=== PATIENT | female | born 1995 | race Caucasian/White ===

== ENCOUNTER 2020-01-06 18:10 | Emergency (ER) | payer OTHER, SELFPAY ==
[2020-01-06 18:10] VITALS: BP 140/90; PULSE 92; RESP 16; TEMP 36.6; O2SAT 100; BMI 29.5
--- NOTE | 2020-01-06 18:58 | DI.RAD.S_ITS ---
PROCEDURE: XR LUMBAR SPINE 2-3V INDICATIONS: Lower lumbar back pain TECHNIQUE: 2 views of the lumbar spine were acquired. COMPARISON: None. FINDINGS: Bones: 5 [id number]-[id number] vertebrae are present. There is normal bony alignment. No vertebral body compression fractures. No suspicious bony lesions. Soft tissues: Overlying bowel gas pattern is normal. No suspicious soft tissue calcifications. IMPRESSION: No fracture. No acute osseous lesion. If symptoms and/or clinical suspicion for pathology persists, evaluation with MRI may be helpful for further assessment. Dictated by: May Varela MD, PhD on 01/06/2020 at 19:29 Approved by: May Varela MD, PhD on 01/06/2020 at 19:30
--- NOTE | 2020-01-06 19:07 | ED_ITS ---
HPI - Back Pain/Injury <Hortensia Chamberlain, VOICE AND DATA TECHNICIAN - Last Filed: 01/06/20 21:06> General Chief Complaint: Back Pain/Injury Stated Complaint: Back pain Time Seen by Provider: 01/06/20 18:13 Source: patient Limitations: no limitations History of Present Illness HPI Narrative: 24yo female presents emergency department for lower lumbar back pain for the past few weeks. She states she has seen her primary care provider and was given a muscle relaxer and encouraged to take ibuprofen which has helped some. However, she states she has noticed some tingling in the area today that radiated up to the rib left side of her neck. Patient states she has a history of neck pain and often gets neck pain with migraines. She denies any neck pain or migraines at this time. Patient states the tingling moves throughout her body depending on the time. She denies any leg weakness, saddle paresthesias, loss of bowel or bladder control, dizziness, syncope, fevers, chills, vision changes, chest pain, shortness of breath, or any other concerns. Related Data Home Medications Medication Instructions Recorded Confirmed crymlhn-rphnsjgvnbiet-akvibnii 250 1 tab PO Q4-6H PRN 05/04/19 05/04/19 mg-250 mg-65 mg tablet cyclobenzaprine 10 mg tablet 10 mg PO .unk PRN tab 05/04/19 05/04/19 ondansetron HCl 8 mg tablet 8 mg PO Q12H PRN 05/04/19 05/04/19 Previous Rx's Medication Instructions Recorded erenumab-aooe 70 mg/mL 70 mg SUBCUT QMONTH #1 each 05/04/19 subcutaneous auto-injector sumatriptan succinate 100 mg tablet See Rx Instructions PO .COMPLEX 05/04/19 #14 tab fremanezumab-vfrm 225 mg/1.5 mL 225 mg SUBCUT QMONTH #1.5 ml 07/22/19 subcutaneous syringe naratriptan 2.5 mg tablet See Rx Instructions PO .COMPLEX 07/22/19 #10 tab eletriptan 40 mg tablet 40 mg PO ONCE #10 tab 07/27/19 Allergies Allergy/AdvReac Type Severity Reaction Status Date / Time anti-depressants AdvReac enhanced Uncoded 07/22/19 13:28 suicidal ideation/depression hormonal control AdvReac mood Uncoded 07/22/19 13:28 altering Review of Systems <NJ Carrillo - Last Filed: 01/06/20 21:06> Review of Systems Narrative: REVIEW OF SYSTEMS: GENERAL: Denies fever or chills. HENT: No head trauma. EYES: No double vision or vision loss. CARDIOVASCULAR: No chest pain. RESPIRATORY: No shortness of breath. GASTROINTESTINAL: No nausea, vomiting, diarrhea, or constipation. GENITOURINARY: No flank pain. MUSCULOSKELETAL: Complains of lumbar pain, see HPI. INTEGUMENTARY: No rash, lesions, or pruritus. NEURO: Reports tingling sensation to right side and left side of neck, see HPI. PSYCH: No behavior or mood changes. Patient History <NJ Carrillo - Last Filed: 01/06/20 21:06> Surgical History No pertinent past surgical history (Acute) Family History Mother Hypertension Father GERD (gastroesophageal reflux disease) Social History Smoking Status: Never smoker Smoking Status: Never smoker Substance Use Type: does not use Exam <NJ Carrillo - Last Filed: 01/06/20 21:06> Initial Vital Signs Initial Vital Signs: Vital Signs Temperature 97.9 F 01/06/20 18:10 Pulse Rate 92 H 01/06/20 18:10 Respiratory Rate 16 01/06/20 18:10 Blood Pressure 140/90 01/06/20 18:10 Pulse Oximetry 100 01/06/20 18:10 PHYSICAL EXAMINATION: GENERAL: Well groomed, alert, and cooperative. Answers questions promptly and appropriately. Vital signs noted. HENT: Normocephalic, atraumatic. EYES: Symmetrical, sclera white, no periorbital swelling. NECK: No cervical tenderness, full range of motion. CARDIOVASCULAR: S1 and S2 sounds normal. Regular rate and rhythm, no murmurs, clicks, or bruits. No pedal edema. RESPIRATORY: Normal respiratory rate, trachea midline, airway patent. No stridor, nasal flaring or accessory muscle use. Lungs are clear in all [place]. MUSCULOSKELETAL: Tenderness to lower lumbar spine with palpation, no tenderness to flanks or lumbar muscles. Normal gait and coordination. Equal tone and mass bilaterally. No spinal deformities. Equal upper and lower extremity strength bilaterally. EXTREMITIES: CMS intact. No pedal edema. SKIN: Warm, dry, soft, appropriate color for ethnicity. No lesions, rashes, or wounds present to back.. NEURO: Alert and Oriented X 3. No sensory deficits. Intact light touch sensation to upper and lower extremities. PSYCH: Appropriate affect and mood. <Lore Jonas MD - Last Filed: 01/07/20 02:02> Initial Vital Signs Initial Vital Signs: Vital Signs Temperature 97.9 F 01/06/20 18:10 Pulse Rate 92 H 01/06/20 18:10 Respiratory Rate 16 01/06/20 18:10 Blood Pressure 140/90 01/06/20 18:10 Pulse Oximetry 100 01/06/20 18:10 Course <NJ Carrillo - Last Filed: 01/06/20 21:06> Course Course Narrative: Patient reported improved symptoms after administration of Toradol. Orders Ordered: ED Orders 01/06/20 18:58 XR lumbar spine 2-3V Stat Discontinued Medications Ketorolac Tromethamine (Toradol) 30 mg IM NOW ONE Stop: 01/06/20 18:59 Last Admin: 01/06/20 19:25 Dose: 30 mg Documented by: LESLIE Vital Signs Vital signs: Vital Signs - 8 hr 01/06/20 18:10 01/06/20 20:28 Temperature 97.9 F Pulse Rate 92 H 88 Respiratory Rate 16 13 Blood Pressure 140/90 131/66 Pulse Oximetry 100 97 <Lore Jonas MD - Last Filed: 01/07/20 02:02> Orders Ordered: ED Orders 01/06/20 18:58 XR lumbar spine 2-3V Stat Discontinued Medications Ketorolac Tromethamine (Toradol) 30 mg IM NOW ONE Stop: 01/06/20 18:59 Last Admin: 01/06/20 19:25 Dose: 30 mg Documented by: LESLIE Vital Signs Vital signs: Vital Signs - 8 hr 01/06/20 18:10 01/06/20 20:28 Temperature 97.9 F Pulse Rate 92 H 88 Respiratory Rate 16 13 Blood Pressure 140/90 131/66 Pulse Oximetry 100 97 MDM - Back Pain/Injury <NJ Carrillo - Last Filed: 01/06/20 21:06> Medical Records Attestation: I reviewed the patient's medical records. Lab Data Attestation: I reviewed the patient's lab results. Labs: Point of Care Testing Test Results Negative Urine Dip Bedside Urine Glucose Negative Bedside Urine Bilirubin - Negative Bedside Urine Ketone - Negative Urine Specific Mereta 1.010 Bedside Urine Occult Blood - Negative Bedside Urine pH 6.5 Bedside Urine Protein - Negative Bedside Urine Urobilinogen - Negative Bedside Urine Nitrite - Negative Bedside Urine Leukocytes - Negative Esterase Imaging Data Lumbar Xray: Radiologist's Impression: [address] [address] XRay Report Signed Patient: Aisha Christine#: [id number] : 1995Acct:[id number] Age/Sex: 24 / FDate of Service: 01/06/20 Loc: ED Accession Number: [id number] Procedure: XR lumbar spine 2-3V Ordering Provider: Hortensia Chamberlain PROCEDURE: XR LUMBAR SPINE 2-3V INDICATIONS: Lower lumbar back pain TECHNIQUE: 2 views of the lumbar spine were acquired. COMPARISON: None. FINDINGS: Bones: 5 yyg-hdd-txxhjwi vertebrae are present. There is normal bony alignment. No vertebral body compression fractures. No suspicious bony lesions. Soft tissues: Overlying bowel gas pattern is normal. No suspicious soft tissue calcifications. IMPRESSION: No fracture. No acute osseous lesion. If symptoms and/or clinical suspicion for pathology persists, evaluation with MRI may be helpful for further assessment. Dictated by: May Varela MD, PhD on 01/06/2020 at 19:29 Approved by: May Varela MD, PhD on 01/06/2020 at 19:30 [facility] Narrative Medical decision making narrative: History and examination concerning for lumbar strain. Less concern for cauda equina given lack of saddle paresthesias, no limb weakness, no loss of bowel or bladder control. Less concern for spinal nerve release or fractures given history and negative x- ray. Less concern for infectious etiology given lack of recent concerning procedures, patient is afebrile non tachycardic. Unsure exact cause of diffuse tingling sensations, may be related to medication interaction or muscle tension due to current back injury. Patient's symptoms improved after administration of Toradol. She was encouraged to apply ice, heat, perform gentle stretches, participate in low-impact exercise, and follow up with PCP for further discussion and monitoring if necessary. She was given strict return precautions for concerning symptoms. Patient agreed to plan of care verbalized understanding <Lore Jonas MD - Last Filed: 01/07/20 02:02> Lab Data Labs: Point of Care Testing Test Results Negative Urine Dip Bedside Urine Glucose Negative Bedside Urine Bilirubin - Negative Bedside Urine Ketone - Negative Urine Specific Mereta 1.010 Bedside Urine Occult Blood - Negative Bedside Urine pH 6.5 Bedside Urine Protein - Negative Bedside Urine Urobilinogen - Negative Bedside Urine Nitrite - Negative Bedside Urine Leukocytes - Negative Esterase Discharge Plan Departure Patient Disposition: Home Clinical Impression: Low back pain Qualifiers: Chronicity: acute Back pain laterality: left Sciatica presence: without sciatica Qualified Code(s): M54.5 - Low back pain Discharge Date/Time: 01/06/20 20:30 Instructions: DI for Low Back Pain Activity Restrictions/Additional Instructions: Thank you for entrusting me with your care today. As discussed, your x-ray in urine test are non-remarkable. As discussed the tingling sensations a feel may be related to muscle relaxers. Most back pain resolves in approximately 6 weeks. I suggest applying heat, using ice, and performing gentle stretches to low back, upper back, and legs. Additionally, back pain is improved with a moderate amount of low-impact exercise such as swimming or walking. Take ibuprofen as needed for pain. Please follow-up with your primary care provider in 1-2 weeks for further evaluation and discussion of further treatment. Return emergency department for any new or worsening symptoms such as numbness or tingling in your pelvic area, loss of bowel or bladder control, severe pain, or any other concerns. Prescriptions: No Action eletriptan 40 mg tablet 40 mg PO ONCE Qty: 10 RF: 2 ondansetron HCl 8 mg tablet 8 mg PO Q12H PRNRF: 0 cyclobenzaprine 10 mg tablet 10 mg PO .unk PRNRF: 0 Excedrin Migraine 250-250-65 mg tablet 1 tab PO Q4-6H PRNRF: 0 Aimovig Autoinjector 70 mg/mL auto-injector 70 mg SUBCUT QMONTH Qty: 1 RF: 12 sumatriptan succinate 100 mg tablet See Rx Instructions PO .COMPLEX Qty: 14 RF: 2 Ajovy Syringe 225 mg/1.5 mL syringe 225 mg SUBCUT QMONTH Qty: 1.5 RF: 12 naratriptan 2.5 mg tablet See Rx Instructions PO .COMPLEX Qty: 10 RF: 2 Referrals: Katty Perez MD [Primary Care Provider] - <Lore Jonas MD - Last Filed: 01/07/20 02:02> Cosign ED Attending Cosignature Attestation: I was immediately available in the department for consultation throughout this patient's visit. I agree with documentation as above. Lore Jonas MD
[2020-01-06] MEDS: KETOROLAC 60 MG/2 ML VIAL 30 MG IM (19:25)
[2020-01-06 20:28] VITALS: BP 131/66; PULSE 88; RESP 13; O2SAT 97
== END 2020-01-06 20:30 | disposition home or self-care (01) ==
PROVIDERS: Emergency Provider Nurse Practitioner; PCP Hospitalist
DX: M54.5 Low back pain (principal); R20.2 Paresthesia of skin
CPT/HCPCS: 72100; 81003; 81025; 96372; 99283; J1885

== ENCOUNTER → 2021-01-01 09:07 | Outpatient (CLI) | payer OTHER, SELFPAY ==
[2021-01-01 11:47] LABS: COVID19 -Nasal RAPID Negative (Negative)
== END ==
PROVIDERS: PCP Family Medicine; Visit Provider Physician Assistant
DX: Z01.812 Encounter for preprocedural laboratory examination (principal); Z20.822 Contact with and (suspected) exposure to COVID-19
CPT/HCPCS: 87635

== ENCOUNTER 2021-01-02 13:23 | Day surgery (SDC) | payer OTHER, SELFPAY ==
--- NOTE | 2021-01-02 | PATH_ITS ---
[facility] Accession Number: [id number] . 01 Material submitted: . PART A: colon - RIGHT COLON PART B: colon - LEFT COLON . 02 Diagnosis: A. Right Colon, Biopsy: Colonic mucosa with no diagnostic abnormality. Negative for active, chronic, and microscopic colitis. Negative for dysplasia and malignancy. . B. Left Colon, Biopsy: Colonic mucosa with no diagnostic abnormality. Negative for active, chronic, and microscopic colitis. Negative for dysplasia and malignancy. . MRV 01/04/2021 0932 Local . 02 Electronically signed: . Karina South MD, Pathologist NPI- [id number] . 01 Gross description: . Part A: RIGHT COLON: Received in formalin are 3 fragment(s) of healy, soft tissue measuring 0.5 x 0.2 x 0.1 cm to 0.1 x 0.1 x 0.1 cm submitted entirely in 1 cassette(s) Part B: LEFT COLON: Received in formalin are 2 fragment(s) of healy, soft tissue measuring 0.3 x 0.2 x 0.1 cm to 0.2 x 0.1 x 0.1 cm submitted entirely in 1 cassette(s) /MONIQUE 01/03/2021 0405 Local . 02 Pathologist provided ICD-10: R93.5 . 02 CPT . 614522, 568324 Performed at: 01 [facility] [address], [place], [place] [id number] MD Max Villeda MD Phone: [phone] Performed at: 02 [facility] [address] [place], [place] [id number] MD Karina South MD Phone: [phone]
[2021-01-02 13:54] VITALS: BP 156/98; PULSE 106; RESP 18; TEMP 36.5; O2SAT 98; BMI 31.0
[2021-01-02] MEDS: SODIUM CHLORIDE 0.9% 1,000 ML 125 ML IV (14:10)
--- NOTE | 2021-01-02 15:11 | SUR.PREOP ---
Pt got nauseated, cool wash rag and queaze ease to bedside, nausea resolved.
--- NOTE | 2021-01-02 15:25 | P.HP_ITS ---
History of Present Illness History of Present Illness Date Patient Seen: 01/02/21 Time Patient Seen: 15:25 Chief complaint: DX COLONOSCOPY Narrative: I reviewed Dr Aragon's note. diarrhea, ab pain, abnl imaging. Patient History Surgical History No pertinent past surgical history Family & Social History Family History Mother Hypertension Father GERD (gastroesophageal reflux disease) Social History: household members significant other Tobacco & Substance use: Smoking Status Never smoker alcohol intake current alcohol intake frequency holiday/special occasion Substance Use Type marijuana Meds Home Medications and Allergies Home Medications Medication Instructions Recorded Confirmed Type ondansetron HCl 8 mg tablet 8 mg PO Q12H PRN 05/04/19 01/02/21 History fremanezumab-vfrm 225 mg/1.5 mL 225 mg SUBCUT QMONTH #1.5 ml 07/22/19 12/05/20 Rx subcutaneous syringe (Ajovy Syringe) eletriptan 40 mg tablet 40 mg PO ONCE #10 tab 07/27/19 01/02/21 Rx omeprazole 20 mg capsule,delayed 20 mg PO BID 10/17/20 01/02/21 History release tizanidine 4 mg capsule 4 mg PO TID PRN 10/17/20 12/05/20 History hydroxyzine HCl 10 mg tablet 10 mg PO TID PRN #90 tab 12/05/20 01/02/21 Rx lamotrigine 100 mg tablet 150 mg PO DAILY 90 Days #135 tab 12/05/20 12/05/20 Rx Allergies Allergy/AdvReac Type Severity Reaction Status Date / Time anti-depressants AdvReac Intermediate enhanced Uncoded 01/02/21 13:48 suicidal ideation/depression hormonal control AdvReac mood Uncoded 01/02/21 13:48 altering Review of Systems Review of Systems ROS: Yes All systems reviewed with the patient and are negative except as oth erwise documented Exam Vital Signs (past 8 hours): - 01/02/21 13:54 Temperature 97.7 F Pulse Rate 106 H Respiratory Rate 18 Blood Pressure 156/98 H Pulse Oximetry 98 Oxygen Delivery Method Room Air Const General: cooperative and comfortable Orientation: alert HENMT Head: normocephalic Ears: external ears normal Nose: external nose normal Face and sinus: normal facial exam Mouth: oral mucosae normal Eyes General: appearance normal, both eyes and all related structures Neck Neck: normal visual inspection Chest Chest: normal inspection of the chest Resp Effort & Inspection: normal respiratory effort Auscultation: clear to auscultation bilaterally Cardio Rate: regular rate Rhythm: regular rhythm Heart Sounds: no murmurs GI Inspection: normal to inspection Palpation: soft and No tender Auscultation: normal bowel sounds Skin General: no rashes or lesions noted and No jaundice Neuro General: patient alert and moves all extremities Cognition: normal cognition Speech: speech normal Extrem General: no pedal edema Psych Appearance: grossly normal Assessment & Plan Assessment & Plan narrative: diarrhea, ab pain, bleeding, abnl CT. Colonoscopy today.
--- NOTE | 2021-01-02 15:27 | PM.PREOP ---
Pre-operative Note COVID-19 COVID-19 status: Negative Result date/Date tested (Pos, Neg/Pending): 01/01/21 Interval Note History & Physical reviewed/Exam performed by Physician: Yes Changes to H&P: No ASA Class (for procedural sedation): II
[2021-01-02] MEDS: fentaNYL 250 MCG/5 ML INJ IV (15:30)
[2021-01-02] MEDS: MIDAZOLAM 5 MG/5 ML VIAL IV (15:31)
--- NOTE | 2021-01-02 15:50 | P.OP.ENDO_ITS ---
Operative Date/Time/Diagnoses Date of procedure: 01/02/21 Time of procedure: 15:50 Pre-op diagnosis: Diarrhea abdominal pain abnormal imaging Post-op diagnosis: same Procedure & Clinicians Study performed: Colonoscopy with biopsies Same procedure as scheduled: Yes Indications: Diarrhea abdominal pain abnormal imaging remote history of rectal b leeding Surgeon: Bon Koch Procedure Notes SCOAP/Timeout: Done Procedure in detail: After the risks and benefits were explained, written and verbal informed consent was obtained. The patient was brought into the procedure room and placed into the left lateral decubitus position. Conscious sedation medication was applied as per nursing documentation. Digital rectal examination was accomplished. The scope was introduced into the patient and advanced under direct visualization to the cecum as identified by the appendiceal orifice and ileocecal valve. The scope was slowly withdrawn to carefully examine the mucosa for any defects or lesions. Comprehensive imaging was accomplished throughout the rectum including the dentate line. The colon was decompressed, the scope was then removed from the patient who tolerated the procedure well. 7 mg Versed, 150 mcg fentanyl Bowel prep adequate Scope withdrawal time: 8 minutes Sedation minutes: 19 Complications: none Impression: There was no evidence of proctitis. Patient had a fairly normal vascular pattern to the wall no friability or significant erythema. The colon mucosa was normal throughout as well. Random colon biopsies were taken from the right colon and left colon and then submitted separately. The terminal ileum was interrogated for perhaps 10 cm and appeared entirely normal. Multiple photographs were taken of very well preserved villi. No scattered erythema or erosions. Endoscopic diagnosis 1. Visually normal colonoscopy 2. Visually normal terminal ileoscopy Post-procedure Plan for aftercare: 1. Await histopathology 2. Follow up GI clinic. Follow up: weeks Disposition: PACU
[2021-01-02 15:53] VITALS: BP 113/92; PULSE 107; RESP 16; TEMP 36.6; O2SAT 98
[2021-01-02 15:58] VITALS: BP 131/84; PULSE 87; RESP 16; O2SAT 100
[2021-01-02 16:17] VITALS: BP 122/84; PULSE 103; RESP 16; TEMP 36.7; O2SAT 96
--- NOTE | 2021-01-02 16:20 | SUR.PHASEII ---
Belly soft, tolerating flds, no more nausea.
--- NOTE | 2021-01-02 16:27 | SUR.PHASEII ---
Dressed when ready, left in stable condition.
== END 2021-01-02 16:27 | disposition home or self-care (01) ==
PROVIDERS: PCP Family Medicine; Referring Provider Internal Medicine Gastroenterology; Visit Provider Internal Medicine Gastroenterology
PROC: 0DJD8ZZ Inspection of Lower Intestinal Tract, Via Natural or Artificial Opening Endoscopic (ICD-10-PCS; CPT 45378; principal; 2021-01-02 14:30)
DX: R10.31 Right lower quadrant pain (principal); R93.5 Abnormal findings on diagnostic imaging of other abdominal regions, including retroperitoneum; R19.7 Diarrhea, unspecified; K21.9 Gastro-esophageal reflux disease without esophagitis; F32.9 Major depressive disorder, single episode, unspecified
CPT/HCPCS: 45378; J2250; J3010

== ENCOUNTER → 2021-09-03 09:16 | Outpatient (CLI) | payer OTHER, SELFPAY ==
[2021-09-03 10:32] LABS: COVID19 -Nasal RAPID Negative (Negative)
== END ==
PROVIDERS: PCP Family Medicine; Visit Provider Family Medicine Sleep Medicine
DX: Z20.822 Contact with and (suspected) exposure to COVID-19 (principal)
CPT/HCPCS: 87635; C9803

== ENCOUNTER 2021-09-05 11:23 | Day surgery (SDC) | payer OTHER, SELFPAY ==
--- NOTE | 2021-09-05 | PATH_ITS ---
[facility] Accession Number: [id number] . 01 Material submitted: . PART A: gastrointestinal site - GASTRIC PART B: esophagus - ESOPHAGUS PART C: esophagus - ESOPHAGUS . 01 Clinical history: . B: RULE OUT VARICE C: RULE OUT EOE . 02 Diagnosis: A. Stomach, Biopsies: Body-type mucosa with mild chronic gastritis. Negative for Helicobacter by immunohistochemistry. Negative for intestinal metaplasia. Negative for dysplasia and malignancy. . B. Esophagus, Biopsies: Squamocolumnar junctional mucosa with no diagnostic abnormality. Negative for intestinal metaplasia. Negative for dysplasia and malignancy. . C. Esophagus, Biopsies: Squamous mucosa with no diagnostic abnormality. Intraepithelial eosinophils are not increased. Negative for dysplasia and malignancy. MRV 09/11/2021 1447 Local . 02 Electronically signed: . Karina South MD, Pathologist NPI- [id number] . 01 Gross description: . Part A: GASTRIC: Received in formalin are 2 fragment(s) of healy, soft tissue measuring 0.5 x 0.2 x 0.1 cm to 0.1 x 0.1 x 0.1 cm submitted entirely in 1 cassette(s) Part B: ESOPHAGUS: Received in formalin are 2 fragment(s) of healy, soft tissue measuring 0.4 x 0.2 x 0.2 cm to 0.1 x 0.1 x 0.1 cm submitted entirely in 1 cassette(s) Part C: ESOPHAGUS: Received in formalin are 3 fragment(s) of healy, soft tissue measuring 0.3 x 0.3 x 0.3 cm to 0.2 x 0.2 x 0.2 cm submitted entirely in 1 cassette(s) /CPE 09/06/2021 0726 Local . 02 Microscopic: . A. An immunohistochemical stain is performed to evaluate for Helicobacter organisms and is negative. The control stain shows appropriate reactivity. . B. An AB/PAS stain is performed to evaluate for intestinal metaplasia, and is negative. The control stain shows appropriate reactivity. . * This test was developed and its performance characteristics determined by [facility]. It has not been cleared or approved by the U.S. Food and Drug Administration. The FDA has determined that such clearance or approval is not necessary. This test is used for clinical purposes. It should not be regarded as investigational or for research. . 02 Pathologist provided ICD-10: R13.10, R11.10 . 02 CPT . 667924, 967820, 338807, 768286, K51551 Specimen Comment: A courtesy copy of this report has been sent to [facility] Performed at: 01 [facility] Cyt[facility] [address] [id number] MD Max Villeda MD Phone: [phone] Performed at: 02 [facility] [address] [place] [id number] MD Karina South MD Phone: [phone]
[2021-09-05 11:40] VITALS: BP 131/91; PULSE 90; RESP 16; TEMP 36.1; O2SAT 100; BMI 32.5
[2021-09-05] MEDS: SODIUM CHLORIDE 0.9% 1,000 ML 84 ML IV (11:53)
--- NOTE | 2021-09-05 12:15 | PM.PREOP ---
Pre-operative Note COVID-19 COVID-19 status: Negative Interval Note History & Physical reviewed/Exam performed by Physician: Yes Changes to H&P: No ASA Class (for procedural sedation): II
--- NOTE | 2021-09-05 12:16 | PM.OP.EGD ---
Operative Date/Time/Diagnoses Date of procedure: 09/05/21 Pre-op diagnosis: See indication and findings Procedure & Clinicians Study performed: EGD Indications: GERD poorly responsive to medication Procedure Notes Procedure in detail: After informed consent was obtained the patient was placed in left lateral decubitus position. The video upper scope was placed into the oropharynx and with the patient's help swallowed into the esophagus. The esophagus stomach and duodenum were carefully examined. On withdrawal retroflexed view the GE junction was performed. The scope was removed. The patient tolerated procedure well. Blood loss none Complications none Sedation mac Findings 1. Somewhat irregular Z-line with at least 2 small areas/tongues measuring 5-6 mm above the bulk of the Z-line. Biopsies taken to rule out Dickson's 2. Normal esophagus biopsies taken to rule out eosinophilic esophagitis 3. Striped gastric erythema in the antrum, mild. Biopsies taken to rule out Helicobacter 4. Normal duodenal bulb and sweep Patient will be in touch regarding biopsies. In the meantime she will buy famotidine 20 mg take 2 p.o. q.h.s. along with her omeprazole which she has taken before dinner. If this still is unclear her in the morning she should add famotidine 40 mg q.a.m. as well.
[2021-09-05 12:56] VITALS: BP 134/86; PULSE 91; RESP 16; TEMP 37.3; O2SAT 99
[2021-09-05 13:01] VITALS: BP 142/86; PULSE 82; RESP 16; O2SAT 97
[2021-09-05 13:07] VITALS: BP 135/96; PULSE 79; RESP 18; O2SAT 98
[2021-09-05 13:17] VITALS: BP 142/76; PULSE 92; RESP 16; TEMP 37.2; O2SAT 99
[2021-09-05 13:21] VITALS: BP 136/80; PULSE 90; RESP 16; TEMP 36.2; O2SAT 98
== END 2021-09-05 13:24 | disposition home or self-care (01) ==
PROVIDERS: PCP Family Medicine; Referring Provider Internal Medicine Gastroenterology; Visit Provider Internal Medicine Gastroenterology
PROC: 0DJ08ZZ Inspection of Upper Intestinal Tract, Via Natural or Artificial Opening Endoscopic (ICD-10-PCS; CPT 43235; principal; 2021-09-05 12:30)
DX: K29.50 Unspecified chronic gastritis without bleeding (principal); K21.9 Gastro-esophageal reflux disease without esophagitis
CPT/HCPCS: 43239; 81025; J2704

== ENCOUNTER → 2023-02-24 14:38 | Outpatient (CLI) | payer OTHER, SELFPAY ==
[2023-02-24 14:53] LABS: Specimen Label NATERA
[2023-02-24 15:33] LABS: Add Manual Diff / Slide Review NO; Basophils Absolute Auto 0 /uL (0-100); Basophils Percent Auto 0.5 % (0-2); Eosinophils Absolute Auto 100 /uL (0-450); Hematocrit 39.9 % (36-46); Hemoglobin 13.9 g/dL (12.0-16.0); Lymphocytes Absolute Auto 2100 /uL (1100-4500); Lymphocytes Percent Auto 25.1 % (25-40); Mean Corpuscular HGB Conc 34.8 % (30-36); Mean Corpuscular Hemoglobin 29.7 PG (26-34); Mean Corpuscular Volume 85.5 fL (80-100); Monocytes Absolute Auto 600 /uL (0-900); Monocytes Percent Auto 6.9 % (3-14); Neutrophils Absolute Auto 5400 /uL (1500-7000); Neutrophils Percent Auto 66.5 % (50-75); Platelet Count 266 X10^3/uL (150-400); Red Blood Cell Count 4.66 X10^6/uL (4.0-5.2); Red Cell Distribution Width 13.6 % (11.6-14.8); White Blood Cell Count 8.2 X10^3/uL (4.5-11.0)
[2023-02-24 17:09] LABS: Hepatitis B Surface Antigen NEGATIVE s/c (NEGATIVE); Rubella Antibody IgG 67.2 IU/mL (>15)
[2023-02-24 17:25] LABS: HIV 1 & 2 Ab/Ag 4th Gen Combo NEGATIVE (NEGATIVE); Hep C Virus Ab w/Reflex Quant NEGATIVE s/c (NEGATIVE)
[2023-02-25 06:08] LABS: RPR Screen Non Reactive (Non Reactive)
[2023-02-25 12:55] LABS: Varicella IgG Antibody 145 index (Immune >165)
== END ==
PROVIDERS: PCP Physician Assistant Medical; Referring Provider Obstetrics & Gynecology; Visit Provider Obstetrics & Gynecology
DX: Z34.01 Encounter for supervision of normal first pregnancy, first trimester (principal)
CPT/HCPCS: 36415; 80055; 86787; 86803; 86850; 86900; 86901; 87389

== ENCOUNTER → 2023-03-25 16:43 | Outpatient (CLI) | payer OTHER, SELFPAY ==
[2023-03-25 20:01] LABS: Urine N gonorrhoeae NOT DETECTED
[2023-03-25 20:11] LABS: Urine Chlamydia NOT DETECTED
== END ==
PROVIDERS: PCP Physician Assistant Medical; Referring Provider Student in an Organized Health Care Education/Training Program; Visit Provider Student in an Organized Health Care Education/Training Program
DX: Z34.01 Encounter for supervision of normal first pregnancy, first trimester (principal); Z3A.14 14 weeks gestation of pregnancy
CPT/HCPCS: 87086; 87491; 87591

== ENCOUNTER → 2023-04-23 15:43 | Outpatient (CLI) | payer OTHER, SELFPAY ==
[2023-04-28 15:03] LABS: Gest Age on Col Date 18.6 weeks (.); Insulin Dep Diabetes No (.); OSBR Risk 1IN 7137 (.); Results Report (.); Test Results *Screen Negative* (.)
== END ==
PROVIDERS: PCP Physician Assistant Medical; Referring Provider Student in an Organized Health Care Education/Training Program; Visit Provider Student in an Organized Health Care Education/Training Program
DX: Z34.02 Encounter for supervision of normal first pregnancy, second trimester (principal); Z3A.18 18 weeks gestation of pregnancy
CPT/HCPCS: 36415; 82105

== ENCOUNTER → 2023-05-05 12:05 | Outpatient (CLI) | payer OTHER, SELFPAY ==
--- NOTE | 2023-05-05 12:06 | DI.US.S_ITS ---
PROCEDURE: US OB >= 14 WEEKS FETUS INDICATIONS: Anatomy Scan OUTSIDE/PRIOR DATING DATA: Last menstrual period (LMP): 12/14/2022. LMP-based estimated date of delivery (VENKATESH): 09/20/2023. The calculations are made using the clinical VENKATESH of 09/20/2023. TECHNIQUE: Real-time scanning was performed of the fetus, with image documentation and biometric measurements. Technically difficult exam due to the body habitus and acoustic windows. COMPARISON: [facility], , US OB >= 14 WEEKS FETUS, 02/24/2023, 14:18. FINDINGS: General: A single living intrauterine gestation is present. Presentation: Vertex. Placenta: Placental position is fundal, without previa. Amniotic fluid index: 11.3 cm, normal range is 5-24 cm. Single deepest vertical pocket is 4 cm. heart rate: 141 beats per minute. Maternal cervical canal: 3.5 cm long. Normal lower limit is 2.5 cm. biometrics: Biparietal diameter: 4.8 cm, 20 weeks 4 days Head circumference: 18.2 cm, 20 weeks 4 days Abdominal circumference: 14.2 cm, 19 weeks 4 days Femur length: 3.5 cm, 20 weeks 6 days Clinically estimated gestational age: 20 weeks 2 days Composite gestational age from present scan: 20 weeks 3 days Estimated weight and percentile: 339 g, 41st percentile Anatomic survey: Neuro: Ventricles are non-dilated at less than 10 mm. Cisterna magna is normal at 3-11 mm. Cerebellum is normal in size and morphology. Nuchal skin fold: Normal at less than 6 mm between 14-21 weeks gestational age. Face: Nose and lips, facial profile are normal. Spine: No evidence for spina bifida. Heart: 4-chambered heart is present, with normal ventricular outflow tracts. Diaphragm: Diaphragm is intact. Stomach: Left-sided stomach is present. Kidneys: No hydronephrosis. Normal is less than 5 mm in 2nd trimester, less than 7 mm in 3rd trimester. Cord: 3-vessel cord has orthotopic insertion. Bladder: Normal in size. Extremities: All 4 extremities identified. IMPRESSION: Technically difficult exam due to acoustic windows and body habitus. 1. [place] living intrauterine at 20 weeks 3 days based on today's ultrasound. Fetus is in the 41st percentile for weight. 2. Normal placenta and amniotic fluid. 3. Normal and complete anatomic survey. We strive to produce accurate, complete, and clear reports of imaging services. To assist us in improving patient care, this report was composed using standard report templates and voice recognition software. Therefore, it may contain abnormal punctuation, insertions and/or omissions. Occasional wrong-word or sound-alike substitutions may occur. Though we review the report and make efforts to correct it, we do recommend that the report be read carefully in proper context to recognize any text inaccuracies. Dictated by: Delta Peters M.D. on 05/05/2023 at 15:32 Approved by: Delta Peters M.D. on 05/05/2023 at 15:39
== END ==
PROVIDERS: PCP Physician Assistant Medical; Referring Provider Student in an Organized Health Care Education/Training Program; Visit Provider Student in an Organized Health Care Education/Training Program
DX: Z34.02 Encounter for supervision of normal first pregnancy, second trimester (principal); Z3A.20 20 weeks gestation of pregnancy
CPT/HCPCS: 76811

== ENCOUNTER → 2023-05-21 17:02 | Outpatient (CLI) | payer OTHER, SELFPAY | PROVIDERS: PCP Physician Assistant Medical; Visit Provider Obstetrics & Gynecology | DX: Z34.90 Encounter for supervision of normal pregnancy, unspecified, unspecified trimester (principal) | CPT/HCPCS: 87086 ==

== ENCOUNTER 2023-05-27 18:09 | Emergency (ER) | payer OTHER, SELFPAY ==
[2023-05-27 18:17] VITALS: BP 137/82; PULSE 104; RESP 20; TEMP 36.6; O2SAT 100; BMI 28.0
[2023-05-27 19:16] LABS: Influenza A - CEPHEID Flu A NEGATIVE (NEGATIVE); Influenza B - CEPHEID Flu B NEGATIVE (NEGATIVE)
[2023-05-27 19:31] LABS: COVID-19 CEPHEID 4-PLEX PCR Negative (Negative)
[2023-05-27 19:32] LABS: Respiratory Syncytial Virus POSITIVE (Negative)
--- NOTE | 2023-05-27 20:22 | ED.GENADULT ---
HPI - General Adult General Chief complaint: Upper Respiratory Symptoms Stated complaint: sent by OB for fever 23 wks Time Seen by Provider: 05/27/23 18:26 Source: patient Mode of arrival: Ambulatory History of Present Illness HPI narrative: Patient is a 27-year-old female. She is 23 weeks . She is here for evaluation of a fever. She was sent in by her OB provider. Does have some sinus congestion. Also has a cough. No sore throat. No abdominal pain, vaginal bleeding, vaginal discharge or urinary symptoms. No rashes. She has had a uncomplicated up to this point. Related Data Home Medications Medication Instructions Recorded Confirmed ondansetron HCl 8 mg tablet 8 mg PO Q12H PRN Nausea 05/04/19 05/21/23 calcium carbonate 300 mg (750 mg) 300 mg PO QID PRN dyspepsia 02/04/23 05/21/23 chewable tablet (Tums) vitamin-ferrous sulfate tab PO 02/04/23 05/21/23 27 mg iron-folic acid 0.8 mg tablet promethazine 25 mg tablet 25 mg PO Q4-6H PRN nausea and 02/04/23 05/21/23 vomiting pyridoxine (vitamin B6) 100 mg 100 mg PO QID PRN nausea 02/04/23 05/21/23 tablet Allergies Allergy/AdvReac Type Severity Reaction Status Date / Time anti-depressants AdvReac Intermediate enhanced Uncoded 05/21/23 15:13 suicidal ideation/depression hormonal control AdvReac mood Uncoded 05/21/23 15:13 altering Review of Systems Constitutional Constitutional: Reports system reviewed and no additional complaints, except as documented ENT Ears, Nose, Mouth, and Throat: Reports system reviewed and no additional complaints, except as documented Respiratory Respiratory: Reports system reviewed and no additional complaints, except as documented Gastrointestinal Gastrointestinal: Reports system reviewed and no additional complaints, except as documented Integumentary/Breasts Skin/Breast: Reports system reviewed and no additional complaints, except as documented Patient History Medical History Persistent mood [affective] disorder, unspecified Surgical History (Updated 02/04/23 @ 10:07 by Michelle Foote RN) History of removal of skin mole [place] teeth extracted Family History (Updated 02/04/23 @ 10:08 by Michelle Foote RN) Mother Hypertension Father GERD (gastroesophageal reflux disease) Grandmother Colon cancer Social History marital status: number of children: 0 household members: spouse lives independently: Yes caregiver/support person: No housing: house pets and animals: No education level: college (bachelor's degree) occupational status: employed (works in [employer]) current occupational exposures/hazards: Yes special [place] needs: No travel history: recent ([place], [place]) seatbelt use: always water heater temp set < 120 deg: Yes working smoke detector in home: Yes fire extinguisher in home: Yes carbon monox detector in home: Yes firearms in home: Yes firearms unloaded and locked: Yes do you feel safe at home: Yes Smoking Status: Former smoker second hand exposure: Yes (sees a lot of patients in their homes who smoke) alcohol intake: former (occasionally when not ) substance use type: marijuana (agrees not to use while /) during the past year weight has: decreased > 10 lbs (15-20 lb, intentional w/ diet/exercise) well-balanced diet: rarely or never daily servings fruits/ve-1 caffeine: Yes (1 cup coffee in AM) Type(s) of exercise: walking Smoking Status: Former smoker alcohol intake frequency: holidays/special occasions only Substance Use Type: does not use Exam Initial Vital Signs Initial Vital Signs: Vital Signs Temperature 97.8 F 05/27/23 18:17 Pulse Rate 104 H 05/27/23 18:17 Respiratory Rate 20 05/27/23 18:17 Blood Pressure 137/82 05/27/23 18:17 Pulse Oximetry 100 05/27/23 18:17 Oxygen Delivery Method Room Air 05/27/23 18:17 HENMT Head: normal to inspection and normocephalic Resp Effort & Inspection: normal respiratory effort Cardio Rate: regular rate GI Other: Gravid abdomen Neuro General: patient alert, patient awake, patient oriented x3 and moves all extremities Extrem General: No edema Course Orders Ordered: ED Orders 05/27/23 18:23 Covid-19 + FLU A/B + RSV - PCR Stat Vital Signs Vital signs: Vital Signs - 8 hr 05/27/23 18:17 05/27/23 20:24 Temperature 97.8 F 97.9 F Pulse Rate 104 H 78 Respiratory Rate 20 20 Blood Pressure 137/82 130/76 Pulse Oximetry 100 97 Oxygen Delivery Method Room Air Room Air Medical Decision Making Lab Data Labs: Lab Results 05/27/23 Range/Units 18:23 SARS-CoV-2 (PCR) Negative (Negative) Influenza A (RT-PCR) Flu a negative (NEGATIVE) Influenza B (RT-PCR) Flu b negative (NEGATIVE) RSV (PCR) Positive A (Negative) Urine Dip Bedside Urine Glucose Negative Bedside Urine Bilirubin - Negative Bedside Urine Ketone - Negative Urine Specific [place] 1.005 Bedside Urine Occult Blood - Negative Bedside Urine pH 6.0 Bedside Urine Protein - Negative Bedside Urine Urobilinogen - Negative Bedside Urine Nitrite - Negative Bedside Urine Leukocytes +/- 15 Esterase Point of care testing: Urine Dip Bedside Urine Glucose Negative Bedside Urine Bilirubin - Negative Bedside Urine Ketone - Negative Urine Specific [place] 1.005 Bedside Urine Occult Blood - Negative Bedside Urine pH 6.0 Bedside Urine Protein - Negative Bedside Urine Urobilinogen - Negative Bedside Urine Nitrite - Negative Bedside Urine Leukocytes +/- 15 Esterase MDM Narrative Medical decision making narrative: Patient is RSV positive. She has no Ob specific related complaints. There was no indication for any OB ultrasound. Patient is not hypertensive. No indication for antibiotics. Discussed the use of Tylenol given her status. Instructed to keep all of her medical appointments. She was given return precautions. She expressed understanding and agreement. Discharge Plan Departure Patient Disposition: Home Clinical Impression: Respiratory syncytial virus (RSV) Instructions: DI for Respiratory Syncytial Virus -- Adults Activity Restrictions/Additional Instructions: Unfortunately because of your status you were very limited on what you can take as far as medications for cough and cold preparations. You can take Tylenol for any fevers or body aches. I recommend that you talk with your OB provider as they may have more options for you. Return to the emergency department for worsening symptoms. Prescriptions: No Action pyridoxine (vitamin B6) 100 mg tablet 100 mg PO QID PRN (Reason: nausea) promethazine 25 mg tablet 25 mg PO Q4-6H PRN (Reason: nausea and vomiting) calcium carbonate [Tums] 300 mg (750 mg) tablet,chewable 300 mg PO QID PRN (Reason: dyspepsia) vit-ferrous sulfat-FA 27 mg iron- 0.8 mg tablet PO ondansetron HCl 8 mg tablet 8 mg PO Q12H PRN (Reason: Nausea) Patient Comments: few weeks Referrals: Courtney Perez PA-C [Primary Care Provider] - Stand Alone Forms: Patient Portal/API
[2023-05-27 20:24] VITALS: BP 130/76; PULSE 78; RESP 20; TEMP 36.6; O2SAT 97
== END 2023-05-27 20:25 | disposition home or self-care (01) ==
PROVIDERS: Emergency Provider Emergency Medicine; PCP Physician Assistant Medical
DX: J06.9 Acute upper respiratory infection, unspecified (principal); B97.4 Respiratory syncytial virus as the cause of diseases classified elsewhere; Z20.822 Contact with and (suspected) exposure to COVID-19; Z3A.23 23 weeks gestation of pregnancy
CPT/HCPCS: 0241U; 81003; 99282

== ENCOUNTER 2023-06-13 14:39 | Observation (INO) | payer OTHER, SELFPAY ==
--- NOTE | 2023-06-13 16:55 | P.TNLD_ITS ---
Visit Information Visit Information Date of evaluation: 06/13/23 Primary OB Provider: Cynthia Ramsey On-call OB Provider: Jinny Bull Reason for Evaluation: Yes other Comments/Additional reasons for admission: at 25w6d complicated by MY, Bipolar 2 presented after bumping her abdomen on car door. Incident at 11:00, presented roughly 4 hours. Worried about status of baby. No abdominal pain, contractions, VB, LOF. Vital Signs Vital Signs: See Obix, all WNL PFSH Medical History Persistent mood [affective] disorder, unspecified Surgical History (Updated 02/04/23 @ 10:07 by Michelle Foote, RN) History of removal of skin mole [place] teeth extracted Family History (Updated 02/04/23 @ 10:08 by Michelle Foote RN) Mother Hypertension Father GERD (gastroesophageal reflux disease) Grandmother Colon cancer Social History marital status: number of children: 0 household members: spouse lives independently: Yes caregiver/support person: No housing: house pets and animals: No education level: college (bachelor's degree) occupational status: employed (works in mental health) current occupational exposures/hazards: Yes special [place] needs: No travel history: recent ([facility], [place]) seatbelt use: always water heater temp set < 120 deg: Yes working smoke detector in home: Yes fire extinguisher in home: Yes carbon monox detector in home: Yes firearms in home: Yes firearms unloaded and locked: Yes do you feel safe at home: Yes Smoking Status: Former smoker second hand exposure: Yes (sees a lot of patients in their homes who smoke) alcohol intake: former (occasionally when not ) substance use type: marijuana (agrees not to use while /) during the past year weight has: decreased > 10 lbs (15-20 lb, intentional w/ diet/exercise) well-balanced diet: rarely or never daily servings fruits/ve-1 caffeine: Yes (1 cup coffee in AM) Type(s) of exercise: walking Review of Systems Review of Systems Narrative: as above Evaluation Evaluation Baseline heart rate: 145 Variability: Moderate (11-25) monitor accelerations: Present Monitor Decelerations: Absent Contraction Frequency (minutes): 0 Category of Tracing: Appropriate for gestational age Status: Category l Diagnosis, Plan/Disposition Plan/Disposition Plan: at 25w6d presented hours after bumping abdomen with car door. No significant trauma or injury. Asymptomatic. Routine ROS negative. Rh + status. Extended monitoring reassuring. DC to home with strict precautions for return. Routine f/u with OB. OB Disposition: home
== END 2023-06-13 17:14 | disposition home or self-care (01) ==
PROVIDERS: Admitting Provider Student in an Organized Health Care Education/Training Program; PCP Physician Assistant Medical; Referring Provider Student in an Organized Health Care Education/Training Program; Visit Provider Student in an Organized Health Care Education/Training Program
DX: O26.892 Other specified pregnancy related conditions, second trimester (principal); W51.XXXA Accidental striking against or bumped into by another person, initial encounter; Z3A.25 25 weeks gestation of pregnancy
CPT/HCPCS: 59025; 59050; G0378; G0379

== ENCOUNTER → 2023-06-16 09:02 | Outpatient (CLI) | payer OTHER, SELFPAY ==
[2023-06-16 10:37] LABS: Hematocrit 34.2 % (36-46); Hemoglobin 11.7 g/dL (12.0-16.0)
[2023-06-16 11:05] LABS: GTT (PREG) 1 Hour PP 50gm Dose 121 mg/dL (76-139)
== END ==
PROVIDERS: PCP Physician Assistant Medical; Referring Provider Obstetrics & Gynecology; Visit Provider Obstetrics & Gynecology
DX: Z34.02 Encounter for supervision of normal first pregnancy, second trimester (principal); Z3A.26 26 weeks gestation of pregnancy
CPT/HCPCS: 36415; 82950; 85014; 85018

== ENCOUNTER → 2023-08-26 15:51 | Outpatient (CLI) | payer OTHER, SELFPAY ==
[2023-08-27 15:56] LABS: Strep Grp B PCR POS for Grp B Strep
== END ==
PROVIDERS: PCP Physician Assistant Medical; Visit Provider Student in an Organized Health Care Education/Training Program
DX: Z34.03 Encounter for supervision of normal first pregnancy, third trimester (principal); Z3A.36 36 weeks gestation of pregnancy
CPT/HCPCS: 87653

== ENCOUNTER 2023-09-16 01:25 | Inpatient (IN) | payer OTHER, SELFPAY ==
[2023-09-16 02:25] LABS: Add Manual Diff / Slide Review NO; Basophils Absolute Auto 0 /uL (0-100); Basophils Percent Auto 0.3 % (0-2); Eosinophils Absolute Auto 0 /uL (0-450); Eosinophils Percent Auto 0.4 % (2-4); Hemoglobin 9.9 g/dL (12.0-16.0); Lymphocytes Absolute Auto 2600 /uL (1100-4500); Lymphocytes Percent Auto 23.7 % (25-40); Mean Corpuscular Volume 75.9 fL (80-100); Monocytes Absolute Auto 900 /uL (0-900); Monocytes Percent Auto 8.5 % (3-14); Neutrophils Absolute Auto 7200 /uL (1500-7000); Neutrophils Percent Auto 67.1 % (50-75); Platelet Count 190 X10^3/uL (150-400); Red Blood Cell Count 3.95 X10^6/uL (4.0-5.2); Red Cell Distribution Width 14.5 % (11.6-14.8); White Blood Cell Count 10.8 X10^3/uL (4.5-11.0)
[2023-09-16] MEDS: LACTATED RINGERS 1,000 ML 100 ML IV ×2 (02:34→16:40)
[2023-09-16] MEDS: AMPICILLIN 2,000 MG in SODIUM CHLORIDE 0.9% 100 ML 200 MG IV (02:35)
[2023-09-16 03:54] VITALS: BP 129/80
[2023-09-16] MEDS: AMPICILLIN 1,000 MG in SODIUM CHLORIDE 0.9% 100 ML 200 MG IV ×4 (06:23→18:22)
--- NOTE | 2023-09-16 08:35 | P.HPOB_ITS ---
OB HPI Date/Time Date of admission: 09/16/23 Date Patient Seen: 09/16/23 Time Patient Seen: 08:35 History of Present Condition Chief complaint: Labor : 1 Para: 0 Estimated Date of Delivery: 09/20/23 Estimated Gestational Age (weeks): 39+3 Narrative: Ariela Garg is a 28 year old female at 39+3wks who presented overnight with leaking fluid. She is having some mild contractions. No vaginal bleeding. Category 1 tracing. She is GBS positive, and has started ampicillin. 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 Kadeem cfDNA negXX, neg MSAFP Assigned to [facility] Preadmission Labs Blood type: A (+) positive -: Antibody screen: negative, Cystic fibrosis screen: unknown, GBS status: positive, HBsAG: negative, HIV: negative, HSV 1: unknown, HSV 2: unknown and RPR/VDLR: negative -: Chlamydia screen: not detected and Gonorrhea screen: not detected -: Rubella: immune and Varicella: not immune HCT: 30.0 HCAB: negative PAP: Normal Cell-free DNA: Low risk XX 1 hr GTT: 121 Evaluation Evaluation Baseline heart rate: 130 Variability: Moderate (11-25) monitor accelerations: Present Monitor Decelerations: Absent Contraction Frequency (minutes): 5 Uterine Contraction Intensity: Mild Status: Category l Dilation (cm): 1 Effacement (%): 70 station: -2 Position of cervix: mid Consistency: soft Comments: grossly ruptured on admission SVE per RN exam [facility] Medical History Persistent mood [affective] disorder, unspecified Surgical History (Updated 02/04/23 @ 10:07 by Michelle Foote RN) History of removal of skin mole [place] teeth extracted Family History (Updated 02/04/23 @ 10:08 by Michelle Foote RN) Mother Hypertension Father GERD (gastroesophageal reflux disease) Grandmother Colon cancer Social History marital status: number of children: 0 household members: spouse lives independently: Yes caregiver/support person: No housing: house pets and animals: No education level: college (bachelor's degree) occupational status: employed (works in [employer]) current occupational exposures/hazards: Yes special [place] needs: No travel history: recent (domestic, [place]) seatbelt use: always water heater temp set < 120 deg: Yes working smoke detector in home: Yes fire extinguisher in home: Yes carbon monox detector in home: Yes firearms in home: Yes firearms unloaded and locked: Yes do you feel safe at home: Yes Smoking Status: Never smoker second hand exposure: Yes (sees a lot of patients in their homes who smoke) alcohol intake: former (occasionally when not ) substance use type: marijuana (agrees not to use while /) during the past year weight has: decreased > 10 lbs (15-20 lb, intentional w/ diet/exercise) well-balanced diet: rarely or never daily servings fruits/ve-1 caffeine: Yes (1 cup coffee in AM) Type(s) of exercise: walking Meds Home Medications and Allergies Home Medications Medication Instructions Recorded Confirmed Type ondansetron HCl 8 mg tablet 8 mg PO Q12H PRN Nausea 05/04/19 09/16/23 History calcium carbonate 300 mg (750 mg) 300 mg PO QID PRN dyspepsia 02/04/23 09/16/23 History chewable tablet (Tums) vitamin-ferrous sulfate 1 tab PO DAILY 02/04/23 09/16/23 History 27 mg iron-folic acid 0.8 mg tablet promethazine 25 mg tablet 25 mg PO Q4-6H PRN nausea and 02/04/23 09/16/23 History vomiting pyridoxine (vitamin B6) 100 mg 100 mg PO QID PRN nausea 02/04/23 09/16/23 History tablet Allergies Allergy/AdvReac Type Severity Reaction Status Date / Time anti-depressants AdvReac Intermediate enhanced Uncoded 09/08/23 16:10 suicidal ideation/depression hormonal control AdvReac mood Uncoded 09/08/23 16:10 altering Review of Systems Review of Systems ROS: Yes All systems reviewed with the patient and are negative except as otherwise documented OB Exam Vital signs Blood Pressure: 129/80 Pulse Rate: 117 Temperature: 99.1 F HENMT Head: normal to inspection Resp Effort & Inspection: normal respiratory effort and able to speak in complete sentences Cardio Rate: regular rate Rhythm: regular rhythm Extremities Lower extremity: Yes normal to inspection GI Other: gravid, nontender, nondistended Presentation: vertex (per RN exam) Amniotic Fluid: clear Objective Labs 09/16/23 02:18 Labs: Laboratory Results - last 24 hr 09/16/23 02:18 WBC 10.8 RBC 3.95 L Hgb 9.9 L Hct 30.0 L MCV 75.9 L MCH 25.0 L MCHC 33.0 RDW 14.5 Plt Count 190 Neut % (Auto) 67.1 Lymph % (Auto) 23.7 L [place] % (Auto) 8.5 Eos % (Auto) 0.4 L Baso % (Auto) 0.3 Neut # (Auto) 7200 H Lymph # (Auto) 2600 [place] # (Auto) 900 Eos # (Auto) 0 Baso # (Auto) 0 Blood Type A Positive Antibody Screen Negative Assessment and Plan Assessment and Plan Assessment and Plan narrative: 28yo at 39+3wks admitted for prelabor rupture of membranes. -CBC, T&S on admission -continuous EFM -epidural PRN -GBS pos, ampicillin started -PPH risk low -VTE risk low, SCDs with epidural -anticipate L&D Counseling: Common procedures and interventions related to the management of were explained to the patient, including assistance at vaginal delivery with episiotomy, vacuum, or forceps, use of medications to stop premature labor or induce labor, and assessment including auscultation (listening to the heart), use of electronic monitoring (external and / or internal), and use of scalp electrode and/or intrauterine pressure catheter.? It was also explained that approximately 20-30% of mothers have a need for delivery during their labor course. It was explained to the patient that , labor and delivery are ordinarily normal physiological events and can be expected to provide a healthy outcome for mother and baby in the majority of cases. However, there are complications that may arise during , labor, and delivery, such as: hemorrhage requiring administration of blood and/or blood products, surgical intervention, possibly even hysterectomy for life-saving purposes; possibility of infection requiring antibiotics, prolonged hospital stay, and rarely surgical intervention; possibility of blood clots;? possibility of retained products of conception requiring surgical intervention;? possibility of serious tears or injury to the vagina, cervix, perineum, or rectum;? possibility of injury to abdominal structures if delivery is required;? and rarely maternal or may occur. Time Spent with Patient Total time spent with greater than 50% in coordination of care (as documented) at patient's floor/unit and/or counseling patient:: 15-24 minutes
[2023-09-16 08:47] VITALS: BP 129/80; PULSE 117; TEMP 37.3
[2023-09-16] MEDS: miSOPROStoL 25 MCG TABLET SL (08:49)
--- NOTE | 2023-09-16 12:22 | PM.OBPNLAB ---
Date/Time Date Patient Seen: 09/16/23 Time Patient Seen: 12:22 Pain Control Pain control: tolerating well Pelvic Exam Dilation (cm): 2 Effacement (%): 70 station: -2 Amniotic membrane status: Ruptured Contractions Monitor mode: External Contraction pattern: Regular Contraction intensity: Mild Status status: Category l Heart Rate Baseline: 140 Monitor Accelerations: Present Monitor Decelerations: Episodic Monitor Variability: Moderate Assessment and Plan Plan: begin patient augmentation Comments: 28yo at 39+3wks with PROM, now s/p 25mcg cytotec. SVE as above. -will start pitocin augmentation at this time -epidural PRN -anticipate
[2023-09-16] MEDS: OXYTOCIN PREMIX 30 UNIT/500 ML PLAST..BAG IV (12:31)
--- NOTE | 2023-09-16 15:38 | P.PCN_ITS ---
Regional Block Pre-procedure Procedure: Continuous Lumbar Epidural for L&D Attending OB provider: Cynthia Ramsey PM/ROS narrative: term, spont ROM, no obstetric or medical complications, good care. ASA Class: II Labs: Hct 30.0 % (36-46) L 09/16/23 02:18 Plt Count 190 X10^3/uL (150-400) 09/16/23 02:18 Medications: Current Medications Generic Name Dose Route Start Last Admin Trade Name Freq PRN Reason Stop Dose Admin Calcium Carbonate 1,000 mg 09/16/23 01:35 Calcium Carbonate 500 Mg Tab PO Q4HR PRN Dyspepsia Carboprost Tromethamine 250 mcg 09/16/23 01:35 Carboprost 250 Mcg/Ml Ampul IM Q90M PRN Bleeding Fentanyl 50 mcg 09/16/23 01:35 Fentanyl 100 Mcg/2 Ml Inj IV Q1H PRN Pain, Moderate (4-6) Oxytocin/Lactated Ringer's 30 unit in 500 mls @ 200 mls/hr 09/16/23 01:35 Oxytocin Premix IV CONT PRN Bleeding Protocol Tranexamic Acid 1,000 mg/ 100 mls @ 200 mls/hr 09/16/23 01:35 Sodium Chloride IV NOW PRN Bleeding Oxytocin/Lactated Ringer's 30 unit in 500 mls @ 2 mls/hr 09/16/23 01:45 09/16/23 12:31 Oxytocin Premix IV 2 milliunit/min TITRATE CHIO 2 mls/hr Administration Protocol 2 MILLIUNIT/MIN Lactated Ringer's 1,000 mls @ 100 mls/hr 09/16/23 01:45 09/16/23 02:34 Lactated Ringers IV 100 mls/hr CONT CHIO Administration Ampicillin Sodium 1,000 mg/ 100 mls @ 200 mls/hr 09/16/23 06:30 09/16/23 14:21 Sodium Chloride IV 200 mls/hr Q4H CHIO Administration Lidocaine HCl 20 ml 09/16/23 01:35 Lidocaine 1% 20 Ml INJ INTRA-OP PRN Post Delivery Methylergonovine Maleate 0.2 mg 09/16/23 01:35 Methylergonovine 0.2 Mg Tablet PO Q6HR PRN Heavy Bleeding Methylergonovine Maleate 0.2 mg 09/16/23 01:35 Methylergonovine 0.2 Mg/Ml Vial IM NOW PRN Bleeding Misoprostol 800 mcg 09/16/23 01:35 Misoprostol 200 Mcg Tablet MO NOW PRN Bleeding Misoprostol 400 mcg 09/16/23 01:35 Misoprostol 200 Mcg Tablet SL NOW PRN Bleeding Misoprostol 25 mcg 09/16/23 08:30 09/16/23 08:49 Misoprostol 25 Mcg Tablet SL 25 mcg Q4H CHIO Administration Naloxone HCl 0.2 mg 09/16/23 01:35 Naloxone 0.4 Mg/Ml Vial IV Q2MIN PRN Opiate Reversal Ondansetron HCl 4 mg 09/16/23 01:35 Ondansetron 4 Mg/2 Ml Inj IV Q4HR PRN Nausea And Vomiting Oxytocin 10 unit 09/16/23 01:35 Oxytocin 10 Unit/Ml Vial IM NOW PRN Bleeding Allergies: Allergies Allergy/AdvReac Type Severity Reaction Status Date / Time anti-depressants AdvReac Intermediate enhanced Uncoded 09/08/23 16:10 suicidal ideation/depression hormonal control AdvReac mood Uncoded 09/08/23 16:10 altering Procedure Insertion date: 09/16/23 Insertion time: 15:54 Prep/Local: betadine x3 and 1% lidocaine Interspace: L3-4 Patient position: sitting Needle: 18 gauge Hustead (CSE: 27g Pencan through Hustead, clear CSF, 2.5mg MPF bupiv) Loss of resistance with: saline MILDRED at (cm): 5 Catheter placed at SKIN (cm): 11 Catheter in SPACE (cm): 6 Insertion: No CSF, No Blood, No Paresthesia with insertion, No Paresthesia with injection and No Test dose reaction Initial Medications TEST DOSE time: 15:55 TEST DOSE: 1.5% lidocaine with epinephrine 1:200k (mL): 3 BOLUS DOSE time: 16:04 BOLUS DOSE (mL): 4 BOLUS DOSE med: other (infusate) Infusion INFUSION: 0.125% bupivacaine and with fentanyl 2 mcg/mL Initial rate (mL/hr): 8 Subsequent interventions: PCEA@8+4 20:55 - 6, 90, 0. c/o L>R hip and lower abd pain with contractions. Catheter appears intact with minimal migration. Increased rate to 10. 5mL 2- chloroprocaine and clinician bolus 5mL of infusate. Post-procedure Anesthesia date START: 09/16/23 Anesthesia time START: 15:36 Anesthesia date END: 09/16/23 Anesthesia time END: 22:39 Post-procedure Anesthesia Assessment: Yes CV function: HR/BP stable, Yes Resp function: RR/sat/airway adequate, Yes Post-op hydration adequate, Yes Pain control adequate, Yes Nausea & vomiting absent, Yes Temperature > 36 C, Yes Mental status appropriate and No Anesthesia complications
--- NOTE | 2023-09-16 19:02 | PM.OBPNLAB ---
Date/Time Date Patient Seen: 09/16/23 Time Patient Seen: 19:02 Pain Control Pain control: epidural Pelvic Exam Dilation (cm): 6 Effacement (%): 90 station: 0 Amniotic membrane status: Ruptured Contractions Monitor mode: External Pitocin rate (mU/min): 12 Contraction frequency (min): 3 Contraction pattern: Regular Status status: Category l Heart Rate Baseline: 130 Monitor Accelerations: Present Monitor Decelerations: Episodic Monitor Variability: Moderate Assessment and Plan Assessment: active labor Plan: continuous present management Comments: Primarily cat I tracing, with occasional periods of cat II with late decels that resolve with position changes. -continue to titrate pitocin for effect -anticipate
--- NOTE | 2023-09-16 22:57 | PM.OBPRVD ---
Events: Premature Rupture Membrane Labor & Delivery Delivery date: 09/16/23 Intrapartal Events: None Cervical ripening method: per misoprostal protocol Delivery augmentation: pitocin Delivery monitor: external FHT Route of delivery: L&D Laceration Description: Perineal - 2nd Degree Delivery repair: vicryl Estimated blood loss (mL): 200 Quantitative Blood Loss: 286 Anesthesia Type: Epidural Complications: none Narrative: The patient progressed to C/C/+2 with pitocin augmentation and epidural anesthesia. After approximately 45min of maternal pushing efforts, the delivered in OA position and restituted ROT. The anterior shoulder delivered with gentle downward pressure. The posterior shoulder and rest of body delivered with ease. The cord was doubly clamped and cut after a 60sec delay with the infant placed on maternal abdomen. The placenta delivered spontaneously and was intact with a 3-vessel cord. The fundus was noted to be firm with bimanual massage and pitocin. Inspection of the cervix, vagina, and perineum was notable for a 2nd degree perineal laceration. Repair was performed using 3-0 Vicryl in a running, unlocked fashion. Skin was reapproximated in a running, subcuticular fashion. At the end of the repair, all tissues noted to be hemostatic. All sponges were removed from the vagina. The patient tolerated delivery well and remained in the labor room with the infant at the bedside. [place] Baby 1: Infant gender: Female Presentation: vertex score (1 min): 9 score (5 min): 10 weight: 8 lb 3.995 oz Plan for aftercare: Routine care
[2023-09-17] MEDS: ACETAMINOPHEN 325 MG TABLET 650 MG PO ×4 (00:30→18:47)
[2023-09-17] MEDS: IBUPROFEN 600 MG TABLET PO ×4 (00:30→18:47)
[2023-09-17] MEDS: LANOLIN OINT 7 GM 1 APPLIC TOP (09:25)
[2023-09-17] MEDS: PRENATAL VIT,CALC/IRON/FOLIC 1 TABLET 1 TAB PO (09:26)
[2023-09-17] MEDS: DOCUSATE 100 MG CAPSULE PO (09:26)
--- NOTE | 2023-09-17 12:51 | PM.OBPN.1 ---
Subjective - OB Subjective Patient comments: pain well controlled and tolerating diet [place] baby status: nursing well (Patient is is going better with nipple Wolf) [place] feeding status: exclusively breast feeding Narrative: Patient is status post vaginal delivery with second-degree tear. She is urinating and ambulating well. She has cramping when she is up ambulating but no pain when she is laying down. She is sitting without difficulty. She feels is improved with the nipple Wolf. No concerns. Date Patient Seen: 09/17/23 Time Patient Seen: 12:51 Exam Vital Signs (past 8 hours): Blood pressure 116/85, pulse 95, temperature 98.1? Narrative Exam Narrative: Patient's abdomen is soft, nontender. Uterus is firm, U-1, nontender. Mild lochia. Extremities with +1 edema but nontender. Objective Labs 09/16/23 02:18 Assessment & Plan Plan day: 0 plan OB: routine care Time Spent With Patient Time: Total time spent is greater than 50% in coordination of care (as documented) at patient's floor/unit and/or counseling patient: Time with patient: less than 15 minutes
[2023-09-17] MEDS: FERROUS SULFATE 325 MG TABLET PO (13:25)
[2023-09-17 23:47] VITALS: BP 126/75; PULSE 87; RESP 16; TEMP 37
[2023-09-18] MEDS: ACETAMINOPHEN 325 MG TABLET 650 MG PO ×3 (00:07→11:52)
[2023-09-18] MEDS: IBUPROFEN 600 MG TABLET PO ×3 (00:08→11:53)
--- NOTE | 2023-09-18 08:20 | PM.OBDS.1 ---
Discharge Providers Provider Date of admission: 09/16/23 01:25 Discharge Date: 09/18/23 Primary care physician: Courtney Perez PA-C Consults: 09/16/23 01:35 Consult to Anesthesiology Urgent Comment: Consulting Provider: Anesthesiologist Reason for consultation: Epidural 09/17/23 22:56 Consult to Pit Supervisor Routine Comment: Discharge provider: Cynthia Ramsey DO Summary Hospital Course Date Patient Seen: 09/18/23 Time Patient Seen: 08:20 Diagnoses: Term gestation at 39+3wks Prelabor rupture of membranes Group B strep carrier Anemia of Hospital Course: 28yo [id number] admitted at 39+3wks after prelabor rupture of membranes. She progressed to an uncomplicated spontaneous delivery, productive of a viable female infant with APGARs 9/10, weighing 3742g. Her course was uncomplicated. On day #2, she was ambulating, tolerating regular diet, voiding spontaneously with minimal lochia. Her pain was well controlled with oral medications, thus she was discharged to home on day #2. Peripartum Data Delivery Method: Natural Vaginal Laceration Description: Perineal - 2nd Degree Procedures: External monitoring Pitocin augmentation Epidural anesthesia Spontaneous vaginal delivery Obstetrical laceration repair complications: none Discharge Diagnosis (1) Premature rupture of membranes: Status: Acute (2) Group B Streptococcus carrier, antepartum: Status: Acute (3) Normal vaginal delivery: Status: Acute (4) Anemia in : Status: Acute Status at Discharge Cognitive/behavioral status at discharge: oriented Functional status at discharge: independent ambulation Overall status at discharge: patient is progressing back to baseline Time Spent with Patient Time attestation: Total time spent providing and/or coordinating discharge services: Time spent: Less than 30 minutes Objective Labs 09/16/23 02:18 Exam Vital Signs (past 8 hours): vitals reviewed in OBIX, within normal parameters Const General: cooperative, healthy appearing, comfortable and No acute distress Resp Effort & Inspection: normal respiratory effort GI Inspection: normal to inspection Other: fundus firm and nontender at U-2 Skin General: no rashes or lesions noted Neuro General: patient alert and patient awake Extrem General: normal to inspection, no pedal edema and no calf tenderness Psych Mood: congruent mood Affect: normal affect Discharge Plan Discharge Plan Patient Disposition: Home Provider Discharge Comment: Take ibuprofen 600 mg every 6 hours or acetaminophen 650 mg every 6 hours as needed for pain. Avoid placing anything in the vagina for 6 weeks. Discharge orders & Medications Prescriptions: Continued calcium carbonate [Tums] 300 mg (750 mg) tablet,chewable 300 mg PO QID PRN (Reason: dyspepsia) vit-ferrous sulfat-FA 27 mg iron- 0.8 mg tablet 1 tab PO DAILY Discontinued pyridoxine (vitamin B6) 100 mg tablet 100 mg PO QID PRN (Reason: nausea) promethazine 25 mg tablet 25 mg PO Q4-6H PRN (Reason: nausea and vomiting) ondansetron HCl 8 mg tablet 8 mg PO Q12H PRN (Reason: Nausea) Patient Comments: few weeks Follow up/Referrals: Cynthia Ramsey DO [Physician] - (2 week telehealth Appt w/ Dr. Ramsey: October 02 @ 4pm 6 week Appt w/ Dr. Ramsey: October 30 @ 10am (please check in at 9:45am).) Diet/Activity/Treatments Diet: Diet as Tolerated Activity: As tolerated. Skin/Wound/Dressing Care Report to your healthcare provider any signs of infection, such as:: chills, fever, increased pain, unusual drainage and unusual redness Visit Report/Discharge Packet Instructions: Depression, DI for Labor and Delivery, Vaginal Stand Alone Forms: Patient Portal/API, Stroke Signs & Symptoms Discharge Data Primary Care Provider: Courtney Perez
[2023-09-18] MEDS: PRENATAL VIT,CALC/IRON/FOLIC 1 TABLET 1 TAB PO (09:32)
[2023-09-18] MEDS: FERROUS SULFATE 325 MG TABLET PO (09:33)
[2023-09-18] MEDS: DOCUSATE 100 MG CAPSULE PO (09:33)
== END 2023-09-18 13:06 | disposition home or self-care (01) | DRG 807 ==
PROVIDERS: Admitting Provider Obstetrics & Gynecology; PCP Physician Assistant Medical; Referring Provider Obstetrics & Gynecology; Visit Provider Obstetrics & Gynecology
DX: O42.02 Full-term premature rupture of membranes, onset of labor within 24 hours of rupture (principal); Z37.0 Single live birth; O99.824 Streptococcus B carrier state complicating childbirth; O76 Abnormality in fetal heart rate and rhythm complicating labor and delivery; O70.1 Second degree perineal laceration during delivery; Z3A.39 39 weeks gestation of pregnancy
CPT/HCPCS: 36415; 59050; 59200; 59400; 85025; 86850; 86900; 86901; G0379; J0290; J2590